=== PATIENT | male | born 1955 | race Caucasian/White ===

== ENCOUNTER 2023-03-12 22:03 | Emergency (ER) | payer OTHER, SELFPAY ==
--- NOTE | ~2023-03-12 | XR_ITS ---
EXAMINATION: XR KNEE, LEFT CLINICAL INFORMATION: Pain and swelling. COMPARISON: None available. TECHNIQUE: Four views of the left knee. FINDINGS: The bone mineralization is within normal limits. There is mild medial and mild lateral knee degenerative change with mild loss of joint space and osteophyte formation. There is no fracture. There are calcifications overlying the patellofemoral joint space on the lateral view associated with an apparent yactx-xn-rtmovrvj joint effusion. The soft tissues are unremarkable. XR/XR knee LT 2V IMPRESSION: 1. No acute osseous abnormality. 2. Mild medial and lateral knee degenerative change. 3. There is an apparent clcwq-sg-uqsychwd joint effusion associated possible calcification/loose bodies.
[2023-03-12 22:10] VITALS: BP 170/90; PULSE 109; RESP 18; TEMP 37; O2SAT 99; BMI 24.3
--- NOTE | 2023-03-13 00:39 | ED.LOWEXIN ---
HPI - Extremity Injury (Lower) General Chief Complaint: Extremity Injury, Lower Stated Complaint: left knee injury Time Seen by Provider: 03/13/23 00:27 Source: patient Mode of arrival: wheelchair Limitations: no limitations History of Present Illness HPI Narrative: Patient comes to the emergency room complaining of left knee pain. Patient states that he was walking on the stairs, missed a step. Patient states that he did not fall but at something popping. Patient is a that he can not bear weight but it hurts putting weight on his leg, pain is worse over the thigh. Patient denies hip pain or injury. Related Data Previous Rx's Medication Instructions Recorded tramadol 50 mg tablet 50 mg PO BID PRN pain #7 tabs 03/13/23 Allergies Allergy/AdvReac Type Severity Reaction Status Date / Time No Known Allergies Allergy Verified 03/12/23 22:10 Review of Systems Review of Systems: Constitutional : No Weight loss, No Fever, No Chills, No Night Sweats, No Fatigue, No Malaise ENT/Mouth : No Hearing loss, No Ear Pain, No Nasal Congestion, No Sinus Pain, No Hoarseness, No sore throat, No Rhinorrhea, No Swallowing Difficulty Eyes: No Eye Pain, No Swelling, No Redness, No Foreign Body, No Discharge, No Vision Changes Cardiovascular : No Chest Pain, No SOB, No Dyspnea on Exertion, No Orthopnea, No Edema, No Palpitations Respiratory : No Cough, No Sputum, No Wheezing, No Smoke Exposure, No Dyspnea Gastrointestinal : No Nausea, No Vomiting, No Diarrhea, No Constipation, No abdominal Pain, No Hematochezia, No Melena Genitourinary : no irregular bleeding, No Dysuria, No Urinary Frequency, No Hematuria, No Urinary Incontinence, No Urgency, No Flank Pain, No Urinary Flow Changes, No Hesitancy Musculoskeletal : Complaining of left knee pain No Myalgias, No Joint Swelling Skin : No Skin Lesions, No rash Neuro : No Weakness, No Numbness, No Paresthesias, No Loss of Consciousness, No Dizziness, No Headache Psych : No Anxiety/Panic, No Depression, No SI/HI/AH/VH, No Social Issues, Heme/Lymph: No Bruising, No Bleeding,No Lymphadenopathy Endocrine : No Polyuria, No Polydipsia, No Temperature Intolerance PMFSH Social History Social History Advance Directives: No Advance Directives Information Provided: No Physical Exam Vital Signs: Vital Signs: Last Vital Signs Temp 98.6 F 03/12/23 22:10 Pulse 109 H 03/12/23 22:10 Resp 18 03/12/23 22:10 BP 170/90 H 03/12/23 22:10 Pulse Ox 99 03/12/23 22:10 O2 Del Method Room Air 03/12/23 22:10 BMI result Body Mass Index 24.3 Const: Other: Appearance: Alert. Oriented X3. No acute distress. Eyes: Pupils equal, round and reactive to light. ENT: Pharynx normal. Neck: Normal inspection. Neck supple. No lymph nodes noted. No crepitus CVS: Normal heart rate and rhythm. Pulses normal. Normal S1 and S2 Respiratory: No respiratory distress. Breath sounds normal. No Wheezing. No rales Abdomen: Soft and nontender. No rigidity. No distention. Skin: Skin warm and dry. Normal skin color. Normal skin turgor. Extremities: No lower extremity edema. No Lacerations. No Rash patient able to flex and extend the knee. Patient states the pain radiates towards the left thigh and hurts the most with weight-bearing Neuro: Oriented X 3. No motor deficit. No sensory deficit. Moving all extremities. No slurred speech. CN 2 through 12 grossly intact Psych: calm, cooperative, normal affect Medical Decision Making Medical Decision Making MDM Narrative: -my interpretation of x-ray of the knee: Normal alignment, no fracture or dislocation, there is a small joint effusion -discussed with the patient he may have a meniscal versus ligament injury. If patient does not improve within exam next couple of days, he may need an MRI. -patient provided with a knee brace and crutches Differential Diagnosis Differential Diagnoses: The differential diagnosis associated with the presentation includes (Knee contusion, patellar fracture, knee dislocation, meniscal injury, ligament injury) Independent Interpretation I performed an independent interpretation of an: Plain X-Ray Radiology Impression Discussion of test interpretation with radiology: I have reviewed the radiologist's reading. Radiologist Impression: FINDINGS: The bone mineralization is within normal limits. There is mild medial and mild lateral knee degenerative change with mild loss of joint space and osteophyte formation. There is no fracture. There are calcifications overlying the patellofemoral joint space on the lateral view associated with an apparent sqwgo-xn-dvbzeqcc joint effusion. The soft tissues are unremarkable.? XR/XR knee LT 2V IMPRESSION: 1. No acute osseous abnormality. ? 2. Mild medial and lateral knee degenerative change. ? 3. There is an apparent urhyk-sw-wrykrfgd joint effusion associated possible calcification/loose bodies. Discharge Plan Discharge Clinical Impression: Acute knee pain Patient Disposition: Home, Self-Care Instructions: Knee Pain (ED) Additional Instructions: Please follow-up with your primary care physician tomorrow. If you have any worsening or new symptoms, please return to the emergency room or call 911 Prescriptions: New tramadol 50 mg tablet 50 mg PO BID PRN (Reason: pain) Qty: 7 0RF
[2023-03-13] MEDS: traMADoL HCL 50 MG TABLET PO (00:55)
--- NOTE | 2023-03-13 00:56 | PC.NURSE ---
medicated per MAR
== END 2023-03-13 01:01 | disposition home or self-care (01) ==
PROVIDERS: Emergency Provider Emergency Medicine; PCP Internal Medicine
DX: M25.562 Pain in left knee (principal)
CPT/HCPCS: 73560; 99283